=== PATIENT | male | born 1940 | race Caucasian/White ===

== ENCOUNTER 2017-06-08 03:35 | Observation (INO) | payer OTHER ==
[~2017-06-08] VITALS: Ht 172.7 cm; Wt 111.2 kg
[~2017-06-08 03:35] MED LIST: AMARYL1 MG PO; ASPIRIN81 M1 PO; ASPIRIN81 M2 PO; CINNAMON ALPHA1 EACH PO; COUMADIN10 MG PO; COUMADIN7.5 MG PO; LIPITOR40 MG PO; METFORMIN HCL1000 MG PO; METOPROLOL TART25 MG PO; MICROZIDE12.5 M1 PO; NIACIN100 MG PO; OMEPRAZOLE20 M1 PO; PRILOSEC20 MG PO; TRAMADOL HCL50 MG PO; TYLENOL EXTRA500 MG PO; WARFARIN SODIUM10 MG PO
[2017-06-08 04:20] LABS: HEMATOCRIT 44.7 % (38.0-50.0); HEMOGLOBIN 15.3 G/DL (12.5-16.6); MCH 32.3 PG (29.0-34.0); MCHC 34.2 G/DL (30.0-36.0); MCV 94.5 FL (86-99); PLATELET COUNT 184 K/uL (156-360); RBC DIS.WIDTH-CV 12.8 % (11.8-14.6); RBC DIS.WIDTH-SD 44.4 % (39-53); RED BLOOD COUNT 4.73 M/uL (4.00-5.50); WHITE BLOOD COUNT 8.4 K/uL (4.1-10.2)
[2017-06-08 04:29] LABS: PTT 37.5 SEC (25-37)
[2017-06-08 04:32] LABS: ALBUMIN 4.1 g/dL (3.2-4.8); CHLORIDE 102 mEq/L (99-109); POTASSIUM 4.3 mEq/L (3.7-5.4); SODIUM 139 mEq/L (136-147)
[2017-06-08 04:35] LABS: GLUCOSE 150 mg/dL (70-99); TOTAL PROTEIN 7.1 g/dL (6.4-8.3)
[2017-06-08 04:36] LABS: INTER. NORMALIZED RATIO 2.8
[2017-06-08 04:37] LABS: TOTAL BILIRUBIN 0.6 mg/dL (0.0-1.0)
[2017-06-08 04:38] LABS: ALKALINE PHOSPHATASE 86 IU/L (3-129); CREATININE 1.3 mg/dL (0.6-1.3); GFR ESTIMATE (CALCULATED) 57 mL/min/ (58.99-99999)
[2017-06-08 04:39] LABS: UREA NITROGEN (BUN) 23 mg/dL (9-23)
[2017-06-08 04:40] LABS: AST (GOT) 25 IU/L (2-34)
[2017-06-08 04:41] LABS: ALT (GPT) 32 IU/L (3-49)
[2017-06-08 04:42] LABS: LIPASE 15 U/L (1.0-51.0)
[2017-06-08 04:44] LABS: TROP-I INTERPRETATION NEGATIVE; TROPONIN-I 0.02 ng/mL (0.0-0.30)
[2017-06-08] MEDS ORDERED: VITAMIN C1000 MG PO (08:28)
[2017-06-08] MEDS ORDERED: LO-DOSE ASPIRIN81 M1 PO (08:31)
[2017-06-08] MEDS ORDERED: FISH OIL 1,2001 EAC4 PO (08:34)
[2017-06-08] MEDS ORDERED: TYLENOL PM EX-1 EACH PO (08:34)
[2017-06-08] MEDS ORDERED: VITAMIN D31000 UNI2 PO (08:35)
[2017-06-08] MEDS ORDERED: XALATAN2.5 ML RIGHT EYE (08:36)
[2017-06-08] MEDS ORDERED: B-121000 MC2 PO (08:36)
[2017-06-08] MEDS ORDERED: BENADRYL50 MG PO (08:37)
[2017-06-08] MEDS ORDERED: TRANSDERM-SCOP1 EACH TD (08:37)
[2017-06-08] MEDS ORDERED: LIDOCARE1 EACH TP (08:38)
[2017-06-08] MEDS ORDERED: BIOFREEZE TP (08:38)
[2017-06-08 09:01] LABS: HEMATOCRIT 43.5 % (38.0-50.0); MCH 32.4 PG (29.0-34.0); MCHC 34.5 G/DL (30.0-36.0); PLATELET COUNT 177 K/uL (156-360); RBC DIS.WIDTH-CV 12.9 % (11.8-14.6); RBC DIS.WIDTH-SD 44.6 % (39-53); RED BLOOD COUNT 4.63 M/uL (4.00-5.50)
[2017-06-08 09:44] LABS: HDL CHOLESTEROL 41 MG/DL (Desirable>=40); LDL CHOLESTEROL 84 mg/dL (Desirable<100); NON-HDL CHOLESTEROL 120 mg/dL (Desirable<160); TOTAL CHOLESTEROL 161 mg/dL (Desirable<200); TRIGLYCERIDES 181 MG/DL (Normal: <150)
[2017-06-08 10:33] LABS: HEMOGLOBIN A1c (GLYCOHEMOGLOB) 6.8 % (Below 5.7)
[2017-06-08 11:30] VITALS: BP 118/78
[2017-06-08 15:52] VITALS: BP 134/79
[2017-06-08] MEDS ORDERED: ANTIVERT25 MG PO (16:36)
== END 2017-06-08 17:42 | disposition home or self-care (01) ==
LOC: EME 03:35 → EDOF 07:54 → ENRESERV 07:55 → 4SOUTH 15:47
PROVIDERS: Emergency Medicine; Internal Medicine; Physician Assistant Medical
DX: R42 Dizziness and giddiness (principal); G47.34 Idiopathic sleep related nonobstructive alveolar hypoventilation; E11.9 Type 2 diabetes mellitus without complications; Z86.711 Personal history of pulmonary embolism; Z79.01 Long term (current) use of anticoagulants; I25.10 Atherosclerotic heart disease of native coronary artery without angina pectoris; I25.2 Old myocardial infarction; M17.0 Bilateral primary osteoarthritis of knee; K21.9 Gastro-esophageal reflux disease without esophagitis; I10 Essential (primary) hypertension; E78.5 Hyperlipidemia, unspecified; Z87.891 Personal history of nicotine dependence; Z79.4 Long term (current) use of insulin; Z79.82 Long term (current) use of aspirin; Z88.5 Allergy status to narcotic agent; Z82.3 Family history of stroke; Z82.49 Family history of ischemic heart disease and other diseases of the circulatory system; Z88.6 Allergy status to analgesic agent; Z88.0 Allergy status to penicillin
CPT/HCPCS: 70450; 70551; 71045; 80053; 80061; 82948; 83036; 83690; 84484; 85027; 85610; 85730; 93005; 93880; G0378; J7030